=== PATIENT | male | born 1960 | race Caucasian/White ===

== ENCOUNTER → 2021-08-18 | Outpatient (CLI) | payer OTHER ==
[~2021-08-18] MED LIST: REGADENOSON 0.4 MG/5 ML DISP.SYRIN. IV ONE
--- NOTE | 2021-08-18 10:04 | RAD ---
MR#: [id number] Date of Study: 08/18/2021 Ordering Physician: SINA LACY, Referring Physician: SINA LACY, Tech: Jose Gabriel MBA, RDMS, RVT, RDCS, RTR APPROVED REPORT Patient Location: OUT-PATIENT Laterality:Bilateral Indications CAROTID STENOSIS Doppler Spectral Velocity Analysis Right Left pCCA 76/26 cm/spCCA 120/34 cm/s mCCA 82/31 cm/smCCA 103/28 cm/s dCCA 79/27 cm/sdCCA 93/25 cm/s Bulb 69/24 cm/sBulb 67/19 cm/s ECA 165/ cm/sECA 136/ cm/s pICA 86/27 cm/spICA 115/34 cm/s Ashlee 86/24 cm/smICA 96/27 cm/s dICA 86/29 cm/sdICA 90/33 cm/s Vert. 40/ cm/sVert. 44/ cm/s Subcl. 112/ cm/sSubcl. 85/ cm/s ICA/CCA 1.05ICA/CCA 0.96 Findings Grayscale images of the bilateral carotid vessels demonstrates minimal atherosclerosis. Spectral waveforms of the bilateral common carotid and internal carotid arteries are within normal li mits. Overall 0 to less than 50% stenosis. External carotid artery velocities are notable for decre ased resistive flow compatible with distal occlusive disease/small vessel disease. Normal ICA to CCA ratios bilaterally. Antegrade vertebral velocities. Critical Notification Critical Value: No <Conclusion> 1. No significant bilateral internal carotid arterial disease. Signed by : Oliverio Nava, Electronically Approved : 08/18/2021 10:03:50
--- NOTE | 2021-08-18 10:15 | RAD ---
MR#: [id number] Date of Study: 08/18/2021 Ordering Physician: SINA LACY, Referring Physician: SINA LACY, Tech: Jose Gabriel MBA, RDMS, RVT, RDCS, RTR APPROVED REPORT Patient Location: OUT-PATIENT Indications Claudication:Bilaterally Findings Right arm 142, right ankle 173 Left arm 141, left ankle 187 Right MIKALA 1.2, left MIKALA 1.3 Critical Notification Critical Value: No <Conclusion> 1. Mildly elevated bilateral MIKALA suggestive of calcific disease. Otherwise, no significant abnormal ity Signed by : Oliverio Nava, Electronically Approved : 08/18/2021 10:15:15
--- NOTE | 2021-08-18 10:15 | RAD ---
MR#: [id number] Date of Study: 08/18/2021 Ordering Physician: SINA LACY, Referring Physician: SINA LACY, Tech: Jose Gabriel MBA, RDMS, RVT, RDCS, RTR APPROVED REPORT Patient Location: OUT-PATIENT Indications Claudication:Bilaterally VELOCITY AND DOPPLER WAVEFORM ANALYSIS RIGHT cm/secWaveformSeverity LEFT cm/secWaveform Severity dCFA 158.0TriphasicdCFA 121.0Triphasic Prof Fem Art. 69.0TriphasicProf Fem Art. 75.0Triphasic Fem Art Prox. 122.0TriphasicFem Art Prox. 101.0Triphasic Fem Art Mid. 116.0TriphasicFem Art Mid. 109.0Triphasic Fem Art Dist. 109.0TriphasicFem Art Dist. 104.0Triphasic Pop Art(Fossa) 84.0TriphasicPop Art(AK) 94.0Triphasic GYM TEACHER Prox. 82.0TriphasicPTA Prox. 104.0Monophasic GYM TEACHER Dist. 99.0TriphasicPTA Dist. 122.0Monophasic Per Art Mid. 67.0TriphasicPer Art Mid. MIGUEL Prox. 81.0TriphasicATA Prox. 94.0Triphasic DPA 96TriphasicDPA 144Monophasic Findings Grayscale images of the bilateral lower extremity arterial vessels demonstrates mild diffuse atherosc lerosis. Spectral waveforms are mostly triphasic and biphasic throughout the lower extremity arterial vessels. On the right side no significant arterial disease is noted with three-vessel runoff. On the left side no significant arterial disease noted with two-vessel runoff. The peroneal artery o n the left side was not visualized, cannot rule out occlusion. Critical Notification Critical Value: No <Conclusion> 1. No significant lower extremity arterial disease bilaterally. 2. Nonvisualized left peroneal artery, cannot rule out occlusion. Signed by : Oliverio Nava, Electronically Approved : 08/18/2021 10:14:30
--- NOTE | 2021-08-19 12:19 | RAD ---
MR#: [id number] Date of Study: 08/18/2021 Ordering Physician: SINA LACY, Referring Physician: JOSE TRISTAN Tech: HUSSEIN Jaramillo, JERRELL (R) (N) APPROVED REPORT Test Type: Pharmacological Stress Nurse/Tech: Lyla Walters RN Test Indications: CAD,chest pain,fatigue Cardiac History: Hypertension,smoker,1 stent 2014 Medications: See Electronic Medical Record Medical History: See Electronic Medical Record Resting ECG: SB Resting Heart Rate: 56 bpm Resting Blood Pressure: 162/79mmHg Pretest Chest Pain: No chest pain Nurse/Tech Notes S1,S2 and lungs diminished in the bases. Patient complaining of fatigue. Consent: The procedure was explained to the patient in lay terms. Informed consent was witnessed. Gavin eout was entered into [facility] [employer]. History and Stress Test performed by RT Larry BarajasR) (N) Pharm. Details Pharmacologic stress testing was performed using 0.4mg per 5ml of regadenoson given intravenously ove r 7-10 seconds. Stress Symptoms Dyspnea POST EXERCISE Reason for Termination: Infusion complete Target HR: No Max HR: 96 bpm 71% of Maximum Predicted HR: 135 bpm Max Blood Pressure: 150/74mmHg Blood Pressure response to exercise: Normal blood pressure response during stress. Heart Rate response to exercise: WNL Chest Pain: No. Arrhythmia: Yes. PVC ST Change: No. No INTERPRETATION Stress EKG Conclusion: No evidence of stress induced EKG changes. Imaging Protocol IMAGE PROTOCOL: Rest Tc-99m/stress Tc-99m 1 day Rest: Stress: Viability: Radiopharm.Tc99m [id number] Sestamibi Dose10.5mCi 31.2mCi Img Date 08/18/2021 08/18/2021 Inj-Img [id number]. 90min. Rest Admin Site:IV - Left AntecubitalAdministrator:HUSSEIN Jaramillo, JERRELL (R)(N) Stress Admin Site: IV - Left AntecubitalAdministrator: RT Floyd Barajas)(N) STRESS DATA End Diast. Vol.165.0mlAv. Heart Rate63.0bpm End Syst. Vol.56.0mlCO Index BSA6.8L/min Myocardial Zyyn144.0gEject. Mjquqivr01.0% Stress Rates Pk. Fill Rate2.65EDV/secLVtime Pk. Fill 178.27msec Pk. Empty Rate3.15ESV/secLVtime Pk. Yzjup811.31msec 1/3 Pk. Fill1.64EDV/sec Stress Scores Regional WT0.00Summed WT0.00 Regional WM0.00Summed WM1.00 LV Perfusion There is a small sized FIXED septal perfusion defect suggestive of prior septal infarct without activ e ischemia. Wall Motion Normal wall motion. EF 65% LV Perf. Quant 17 Seg. SSS6.00 17 Seg. SRS2.00 17 Seg. SDS4.00 Stress Defect Extent (% LAD)25.00Rest Defect Extent (% LAD)23.10Rev. Defect Extent (% LAD)2.50 Stress Defect Extent (% LCX) 0.00Rest Defect Extent (% LCX)0.00Rev. Defect Extent (% LCX)0.00 Stress Defect Extent (% RCA)0.00Rest Defect Extent (% RCA)0.00Rev. Defect Extent (% RCA)0.00 Stress Defect Extent (% JENNIFER)9.80Rest Defect Extent (% JENNIFER)10.70Rev. Defect Extent (% JENNIFER)0.90 Other Information Quality:Fair Risk Assessment: Low-Moderate Risk Conclusion 1. No evidence of stress induced EKG changes. 2. Fixed septal perfusion defect without active ischemia. 3. Normal EF at > 65% 4. Low to moderate risk study. Signed by : Oliverio Nava, Electronically Approved : 08/19/2021 12:18:53
== END ==
LOC: NM 08:14
PROVIDERS: ATTEND Internal Medicine Cardiovascular Disease
DX: I70.203 Unspecified atherosclerosis of native arteries of extremities, bilateral legs (principal); I65.23 Occlusion and stenosis of bilateral carotid arteries; I25.10 Atherosclerotic heart disease of native coronary artery without angina pectoris; R07.9 Chest pain, unspecified
CPT/HCPCS: 78452; 93017; 93880; 93922; 93925; A9500; J2785